=== PATIENT | female | born 1945 | race Caucasian/White ===

== ENCOUNTER → 2017-11-19 | Outpatient (CLI) | payer MEDICARE, BC ==
[~2017-11-19] MED LIST: DIAZIDE PO; DULO60 PO; ESOM20 PO; GLUCHON PO; MELO7.5 PO; OSTEOFLEX PO; PROM25 PO; TRIHYD253A PO; VITB100 PO; ZESTRIL40 MG PO
[2017-11-19 15:59] LABS: Adenovirus F 40/41 Not Detected (NOT DETECT); Astrovirus Not Detected (NOT DETECT); Campylobacter Sp Not Detected (NOT DETECT); Cryptosporidium Not Detected (NOT DETECT); Cyclospora Cayetanensis Not Detected (NOT DETECT); E. Coli O157 Not Detected (NOT DETECT); Entamoeba Histolytica Not Detected (NOT DETECT); Enteroaggregative E. coli-EAEC Not Detected (NOT DETECT); Enteropathogenic E. coli-EPEC Not Detected (NOT DETECT); Enterotoxigenic E. coli-ETEC Not Detected (NOT DETECT); Giardia Lamblia Not Detected (NOT DETECT); Norovirus GI/GII Not Detected (NOT DETECT); Plesiomonas Shigelloides Not Detected (NOT DETECT); Rotavirus A Not Detected (NOT DETECT); Salmonella Sp Not Detected (NOT DETECT); Sapovirus Not Detected (NOT DETECT); Shigella/Enteroin E. coli-EIEC Not Detected (NOT DETECT); Vibrio Cholerae Not Detected (NOT DETECT); Vibrio Sp Not Detected (NOT DETECT); Yersinia Enterocolitica Not Detected (NOT DETECT)
[2017-11-19 19:28] LABS: Shiga Toxin-prod E. coli-STEC Detected (NOT DETECT)
== END ==
LOC: LAB SHORT 13:55 → LAB 13:55 → LAB FUT 11-19 12:30 → EDSTATUS 11-19 12:30
PROVIDERS: Internal Medicine Hematology & Oncology
DX: R19.7 Diarrhea, unspecified (principal)
CPT/HCPCS: 87507

== ENCOUNTER → 2018-04-09 | Outpatient (CLI) | payer MEDICARE, BC ==
[2018-04-09 15:23] LABS: Percent Saturation 33.3 % (15.0-50.0)
== END | disposition home or self-care (01) ==
LOC: LAB SHORT 14:13 → LAB 14:13
PROVIDERS: Internal Medicine Hematology & Oncology
DX: D50.9 Iron deficiency anemia, unspecified (principal)
CPT/HCPCS: 83540; 83550

== ENCOUNTER → 2021-07-14 | Outpatient (CLI) | payer MEDICARE, BC ==
[~2021-07-14] MED LIST changes: +8 HOUR ACETAMI650 MG PO; +Lovastatin20 MG PO; +VENL75ER PO; +VITAMIN D-32000 UNIT PO; +ZESTRIL40 M1 PO
[2021-07-16 15:07] LABS: FATS, NEUTRAL Normal (.)
[2021-07-19 06:09] LABS: FATS, TOTAL Normal (.)
== END | disposition home or self-care (01) ==
LOC: LAB SHORT 09:45
PROVIDERS: Family Medicine
DX: R14.0 Abdominal distension (gaseous) (principal); R14.3 Flatulence; R63.4 Abnormal weight loss
CPT/HCPCS: 82653; 82705

== ENCOUNTER 2021-12-21 09:11 | Day surgery (SDC) | payer MEDICARE, BC ==
[~2021-12-21] VITALS: Ht 157.5 cm; Wt 57.0 kg
[~2021-12-21 09:11] MED LIST changes: +ACAR50 PO; +CREON DR 36,001 EACH PO; +FISH OIL-VIT D1 EACH PO; +PROLIA60 MG/1 ML SC; +SERT25 PO
== END 2021-12-21 10:45 | disposition home or self-care (01) ==
LOC: ORSCSDS 09:11
PROVIDERS: Ophthalmology
PROC: 08RJ3JZ Replacement of Right Lens with Synthetic Substitute, Percutaneous Approach (ICD-10-PCS; principal; 2021-12-21 10:30)
DX: H25.11 Age-related nuclear cataract, right eye (principal); N18.9 Chronic kidney disease, unspecified; I12.9 Hypertensive chronic kidney disease with stage 1 through stage 4 chronic kidney disease, or unspecified chronic kidney disease; B19.10 Unspecified viral hepatitis B without hepatic coma; D50.9 Iron deficiency anemia, unspecified; E78.5 Hyperlipidemia, unspecified; R73.03 Prediabetes; Z87.891 Personal history of nicotine dependence; Z79.899 Other long term (current) drug therapy
CPT/HCPCS: 82947; J2001; J2250; J3010; J3301; J7040; V2632

== ENCOUNTER 2021-12-28 07:51 | Day surgery (SDC) | payer MEDICARE, BC ==
[~2021-12-28] VITALS: Ht 157.5 cm; Wt 56.5 kg
[2021-12-28] MEDS ORDERED: Mobic15 MG (08:06)
== END 2021-12-28 09:37 | disposition home or self-care (01) ==
LOC: ORSCSDS 07:51
PROVIDERS: Ophthalmology
PROC: 08RK3JZ Replacement of Left Lens with Synthetic Substitute, Percutaneous Approach (ICD-10-PCS; principal; 2021-12-28 09:00)
DX: H25.12 Age-related nuclear cataract, left eye (principal); I10 Essential (primary) hypertension; E03.9 Hypothyroidism, unspecified; I12.9 Hypertensive chronic kidney disease with stage 1 through stage 4 chronic kidney disease, or unspecified chronic kidney disease; N18.9 Chronic kidney disease, unspecified; Z79.899 Other long term (current) drug therapy
CPT/HCPCS: 82947; J2001; J2250; J3010; J3301; J7040; V2632

== ENCOUNTER 2022-01-02 07:15 | Day surgery (SDC) | payer MEDICARE, BC ==
[~2022-01-02] VITALS: Ht 157.5 cm; Wt 56.8 kg
[~2022-01-02 07:15] MED LIST changes: +Mobic15 MG
--- NOTE | 2022-01-02 08:45 | NUR ---
01/02/22 0845 JESSE SALINAS 0.3MG OF EPI(1MG/1ML) ADDED TO 30MLS OF LIDOCAINE 1% TO CREATE A LOCAL SOLUTION OF LIDOCAINE 1% WITH EPI 1:100,000. 10MLS OF LOCAL SOLUTION INJECTED INTO RIGHT HAND AT BEGINNING OF CASE BY SEGUNDO LYON.
== END 2022-01-02 09:35 | disposition home or self-care (01) ==
LOC: ORSCSDS 07:15
PROVIDERS: Orthopaedic Surgery
PROC: 01N50ZZ Release Median Nerve, Open Approach (ICD-10-PCS; principal; 2022-01-02 08:30)
DX: G56.01 Carpal tunnel syndrome, right upper limb (principal); D64.9 Anemia, unspecified; K21.9 Gastro-esophageal reflux disease without esophagitis; F41.9 Anxiety disorder, unspecified; F32.A Depression, unspecified; N18.9 Chronic kidney disease, unspecified; I10 Essential (primary) hypertension; R73.03 Prediabetes; Z98.84 Bariatric surgery status; Z79.899 Other long term (current) drug therapy
CPT/HCPCS: 82947; J0171; J2250; J2704; J3010; J7120

== ENCOUNTER 2022-07-17 00:26 | Day surgery (SDC) | payer MEDICARE, BC ==
[~2022-07-17 00:26] MED LIST changes: -Mobic15 MG; +Mobic15 MG PO
[2022-07-17] MEDS ORDERED: CREON DR 36,001 EACH PO (13:33)
== END 2022-07-17 15:10 | disposition home or self-care (01) ==
LOC: ATC 00:26
DX: G61.82 Multifocal motor neuropathy (principal); I12.9 Hypertensive chronic kidney disease with stage 1 through stage 4 chronic kidney disease, or unspecified chronic kidney disease; N18.9 Chronic kidney disease, unspecified; Z79.899 Other long term (current) drug therapy
CPT/HCPCS: 96365; 96366; 96375; A9270; J1100; J1569

== ENCOUNTER 2022-07-18 02:59 | Day surgery (SDC) | payer MEDICARE, BC | END 2022-07-18 15:41 | disposition home or self-care (01) | LOC: ATC 02:59 | DX: G61.82 Multifocal motor neuropathy (principal); M62.59 Muscle wasting and atrophy, not elsewhere classified, multiple sites; G60.8 Other hereditary and idiopathic neuropathies; G72.9 Myopathy, unspecified; F32.A Depression, unspecified; K21.9 Gastro-esophageal reflux disease without esophagitis; I12.9 Hypertensive chronic kidney disease with stage 1 through stage 4 chronic kidney disease, or unspecified chronic kidney disease; N18.9 Chronic kidney disease, unspecified; Z87.891 Personal history of nicotine dependence; Z79.899 Other long term (current) drug therapy | CPT/HCPCS: 96365; A9270; J1100; J1569 ==

== ENCOUNTER 2022-07-19 00:43 | Day surgery (SDC) | payer MEDICARE, BC | END 2022-07-19 15:56 | disposition home or self-care (01) | LOC: ATC 00:43 | DX: G61.82 Multifocal motor neuropathy (principal) | CPT/HCPCS: 96365; 96366; A9270; J1568 ==

== ENCOUNTER 2022-07-20 02:17 | Day surgery (SDC) | payer MEDICARE, BC | END 2022-07-20 15:30 | disposition home or self-care (01) | LOC: ATC 02:17 | DX: G61.82 Multifocal motor neuropathy (principal); G60.8 Other hereditary and idiopathic neuropathies; G72.9 Myopathy, unspecified | CPT/HCPCS: A9270; J1568 ==

== ENCOUNTER 2022-08-16 02:01 | Day surgery (SDC) | payer MEDICARE, BC | END 2022-08-16 16:10 | disposition home or self-care (01) | LOC: ATC 02:01 | DX: G61.82 Multifocal motor neuropathy (principal); M62.59 Muscle wasting and atrophy, not elsewhere classified, multiple sites; F32.A Depression, unspecified; K21.9 Gastro-esophageal reflux disease without esophagitis; I12.9 Hypertensive chronic kidney disease with stage 1 through stage 4 chronic kidney disease, or unspecified chronic kidney disease; N18.9 Chronic kidney disease, unspecified; Z79.891 Long term (current) use of opiate analgesic; Z79.899 Other long term (current) drug therapy; Z87.891 Personal history of nicotine dependence | CPT/HCPCS: 96365; 96366; A9270; J1568 ==

== ENCOUNTER 2022-08-17 00:23 | Day surgery (SDC) | payer MEDICARE, BC | END 2022-08-17 16:30 | disposition home or self-care (01) | LOC: ATC 00:23 | DX: G61.82 Multifocal motor neuropathy (principal) | CPT/HCPCS: A9270; J1569 ==

== ENCOUNTER 2022-09-13 00:45 | Day surgery (SDC) | payer MEDICARE, BC ==
[~2022-09-13] VITALS: Wt 56.5 kg
== END 2022-09-13 11:42 | disposition home or self-care (01) ==
LOC: ATC 00:45
DX: G61.82 Multifocal motor neuropathy (principal)
CPT/HCPCS: 96365; 96366; A9270; J1569

== ENCOUNTER 2022-09-28 11:36 | Emergency (ER) | payer MEDICARE, BC ==
[~2022-09-28] VITALS: Ht 157.5 cm; Wt 56.7 kg
[2022-09-28 13:13] LABS: BASOPHILS ABSOLUTE AUTO 0.07 K/mm3 (0.00-0.23); BASOPHILS PERCENT AUTO 2 % (0-2); EOSINOPHILS ABSOLUTE AUTO 0.29 K/mm3 (0.00-0.68); EOSINOPHILS PERCENT AUTO 7 % (0-6); Hematocrit 38.6 % (33.0-51.0); Hemoglobin 12.7 g/dL (11.5-16.0); IMMATURE GRAN PERCENT AUTO 0 % (0-1); LYMPHOCYTES ABSOLUTE AUTO 1.08 K/mm3 (0.84-5.20); LYMPHOCYTES PERCENT AUTO 25 % (21-46); MONOCYTES ABSOLUTE AUTO 0.35 K/mm3 (0.16-1.47); MONOCYTES PERCENT AUTO 8 % (4-13); Mean Corpuscular HGB 29.1 pg (26.0-34.0); Mean Corpuscular HGB Conc 32.9 g/dL (31.5-36.5); Mean Corpuscular Volume 88 fL (80-100); NEUTROPHILS ABSOLUTE AUTO 2.49 K/mm3 (1.96-9.15); NEUTROPHILS PERCENT AUTO 58 % (41-73); Platelet Count 330 K/mm3 (150-400); RDW Coefficient Variation 13.7 % (11.7-14.2); RDW Standard Deviation 44.4 fL (35.1-46.3); Red Blood Cell Count 4.37 M/mm3 (3.80-5.20); White Blood Cell Count 4.28 K/mm3 (4.00-11.30)
[2022-09-28 13:40] LABS: Albumin, Blood 3.9 g/dL (3.4-5.0); Albumin/Globulin Ratio 0.8 (0.8-1.8); Bilirubin, Total 0.3 mg/dL (0.1-1.0); Bun/Creatinine Ratio 32.8 (12.0-20.0); Calcium, Blood 9.7 mg/dL (8.5-10.1); Creatinine, Blood 0.76 mg/dL (0.40-1.00); Globulin, Blood 4.9 g/dL (2.2-4.0); Magnesium, Blood 2.1 mg/dL (1.6-2.4); Potassium, Blood 3.8 mmol/L (3.5-5.5); Total Protein, Blood 8.8 g/dL (6.4-8.2)
== END 2022-09-28 16:01 | disposition home or self-care (01) ==
LOC: ER 11:36
PROVIDERS: Physician Assistant
DX: Z04.89 Encounter for examination and observation for other specified reasons (principal); I10 Essential (primary) hypertension; Z79.899 Other long term (current) drug therapy; Z88.1 Allergy status to other antibiotic agents; Z91.048 Other nonmedicinal substance allergy status
CPT/HCPCS: 36415; 80053; 83735; 85025

== ENCOUNTER 2022-10-18 00:59 | Day surgery (SDC) | payer MEDICARE, BC ==
[~2022-10-18] VITALS: Wt 56.8 kg
[2022-10-18 09:10] VITALS: BP 152/88
[2022-10-18] MEDS ORDERED: ABILIFY MYCITE2 M2 PO (09:12)
[2022-10-18 09:54] VITALS: BP 133/81
[2022-10-18 10:06] VITALS: BP 146/76
[2022-10-18 10:38] VITALS: BP 143/76
== END 2022-10-18 11:18 | disposition home or self-care (01) ==
LOC: ATC 00:59
DX: G61.82 Multifocal motor neuropathy (principal); K21.9 Gastro-esophageal reflux disease without esophagitis; Z86.010 Personal history of colon polyps
CPT/HCPCS: 96365; 96366; A9270; J1569

== ENCOUNTER 2022-10-19 01:11 | Day surgery (SDC) | payer MEDICARE, BC ==
[~2022-10-19 01:11] MED LIST changes: +ABILIFY MYCITE2 M2 PO
[2022-10-19 09:19] VITALS: BP 146/78
[2022-10-19 09:57] VITALS: BP 143/86
[2022-10-19 10:14] VITALS: BP 135/88
[2022-10-19 10:28] VITALS: BP 141/87
[2022-10-19 10:46] VITALS: BP 157/86
== END 2022-10-19 11:27 | disposition home or self-care (01) ==
LOC: ATC 01:11
DX: G61.82 Multifocal motor neuropathy (principal); Z85.3 Personal history of malignant neoplasm of breast; N18.9 Chronic kidney disease, unspecified; K21.9 Gastro-esophageal reflux disease without esophagitis
CPT/HCPCS: 96365; 96366; J1569

== ENCOUNTER 2022-11-15 01:27 | Day surgery (SDC) | payer MEDICARE, BC ==
[2022-11-15 09:05] VITALS: BP 138/84
[2022-11-15 09:52] VITALS: BP 129/87
[2022-11-15 10:08] VITALS: BP 118/67
[2022-11-15 10:23] VITALS: BP 134/76
[2022-11-15 10:40] VITALS: BP 128/76
== END 2022-11-15 11:15 | disposition home or self-care (01) ==
LOC: ATC 01:27
DX: G61.82 Multifocal motor neuropathy (principal); I12.9 Hypertensive chronic kidney disease with stage 1 through stage 4 chronic kidney disease, or unspecified chronic kidney disease; N18.9 Chronic kidney disease, unspecified; K21.9 Gastro-esophageal reflux disease without esophagitis; Z87.891 Personal history of nicotine dependence; Z79.899 Other long term (current) drug therapy
CPT/HCPCS: 96365; 96366; J1569

== ENCOUNTER 2024-07-07 20:45 | Emergency (ER) | payer MEDICARE, BC ==
[~2024-07-07] VITALS: Ht 157.5 cm; Wt 59.0 kg
[2024-07-07 23:46] VITALS: BP 179/99
[2024-07-07] MEDS ORDERED: HYDROcodone 5-APAP 325 TAB PO ONE (23:50)
[2024-07-07] MEDS ORDERED: Trimethoprim/Sulfamethoxazole DS Tab PO ONE (23:55)
[2024-07-07] MEDS ORDERED: Cephalexin Monohydrate 500 MG Cap PO ONE (23:55)
[2024-07-08] MEDS ORDERED: RX Prepack 6 Tabs Oxycodone 5mg UD ONE (00:20)
[2024-07-08] MEDS ORDERED: SULTRIDS PO (00:21)
[2024-07-08] MEDS ORDERED: HYDR1TAB94 PO (00:21)
[2024-07-08] MEDS ORDERED: CEPH500 PO (00:21)
== END 2024-07-08 00:41 | disposition home or self-care (01) ==
LOC: ER 20:45
DX: L03.012 Cellulitis of left finger (principal); I10 Essential (primary) hypertension; Z79.899 Other long term (current) drug therapy; Z88.1 Allergy status to other antibiotic agents; Z88.8 Allergy status to other drugs, medicaments and biological substances
CPT/HCPCS: 10060; 99283-25; A9270

== ENCOUNTER → 2024-08-22 | Outpatient (CLI) | payer MEDICARE, BC ==
[~2024-08-22] MED LIST changes: +AMOCLA875 PO; +CEPH500 PO; +HYDR1TAB94 PO; +SULTRIDS PO
[2024-08-22 14:26] LABS: BASOPHILS ABSOLUTE AUTO 0.07 K/mm3 (0.00-0.23); BASOPHILS PERCENT AUTO 1 % (0-2); EOSINOPHILS ABSOLUTE AUTO 0.32 K/mm3 (0.00-0.68); EOSINOPHILS PERCENT AUTO 4 % (0-6); Hematocrit 38.8 % (33.0-51.0); Hemoglobin 12.9 g/dL (11.5-16.0); IMMATURE GRAN ABSOLUTE AUTO 0.02 K/mm3 (0.00-0.10); IMMATURE GRAN PERCENT AUTO 0 % (0-1); LYMPHOCYTES ABSOLUTE AUTO 1.22 K/mm3 (0.84-5.20); LYMPHOCYTES PERCENT AUTO 14 % (21-46); MONOCYTES ABSOLUTE AUTO 0.75 K/mm3 (0.16-1.47); MONOCYTES PERCENT AUTO 9 % (4-13); Mean Corpuscular HGB 29.5 pg (26.0-34.0); Mean Corpuscular HGB Conc 33.2 g/dL (31.5-36.5); Mean Corpuscular Volume 89 fL (80-100); NEUTROPHILS ABSOLUTE AUTO 6.43 K/mm3 (1.96-9.15); NEUTROPHILS PERCENT AUTO 73 % (41-73); Platelet Count 481 K/mm3 (150-400); RDW Coefficient Variation 14.6 % (11.7-14.2); RDW Standard Deviation 46.8 fL (35.1-46.3); Red Blood Cell Count 4.38 M/mm3 (3.80-5.20); White Blood Cell Count 8.81 K/mm3 (4.00-11.30)
[2024-08-24 20:07] LABS: RHEUMATOID FACTOR <10 IU/mL (0-14)
[2024-08-24 23:16] LABS: ANTI-NUCLEAR AB ANA,IGG ELISA None Detected (None Detected)
== END ==
LOC: LAB SHORT 14:16 → LAB 14:16
PROVIDERS: Physician Assistant
DX: L03.119 Cellulitis of unspecified part of limb (principal)
CPT/HCPCS: 84550; 85025; 85651; 86038; 86431; 87070; 87075; 87077; 87147; 87186; 87205

== ENCOUNTER 2024-08-27 02:34 | Day surgery (SDC) | payer MEDICARE, BC ==
[~2024-08-27 02:34] MED LIST changes: -AMOCLA875 PO
[2024-08-27] MEDS ORDERED: Lidocaine HCl 4% Cream 5 GM ONE (12:19)
[2024-08-28] MEDS ORDERED: AMOCLA875 PO (09:30)
== END 2024-08-27 23:00 | disposition home or self-care (01) ==
LOC: WOUND 02:34
DX: S61.200A Unspecified open wound of right index finger without damage to nail, initial encounter (principal); A49.02 Methicillin resistant Staphylococcus aureus infection, unspecified site; I10 Essential (primary) hypertension; Z88.1 Allergy status to other antibiotic agents
CPT/HCPCS: A9270; G0463

== ENCOUNTER 2024-08-28 08:57 | Day surgery (SDC) | payer MEDICARE, BC ==
[~2024-08-28] VITALS: Ht 157.5 cm; Wt 54.7 kg
[2024-08-28] MEDS ORDERED: AMOCLA875 PO (09:30)
[2024-08-28] MEDS ORDERED: NS 1,000 ML IV ONE (09:48)
--- NOTE | 2024-08-28 09:49 | NUR ---
08/28/24 0949 VINAY OLSON PT RESTING ON GURNEY, RAILS UP, CALL LIGHT IN REACH
[2024-08-28] MEDS ORDERED: Vancomycin HCL 1,000 MG in NS 250 ML IV SCH (10:50)
[2024-08-28] MEDS ORDERED: propofoL 20 ML IV ONE (10:50)
[2024-08-28] MEDS ORDERED: FentaNYL Citrate 50 MCG/ML 2 ML Injection ONE (10:54)
[2024-08-28] MEDS ORDERED: Dexamethasone Sod Phos 10 MG/ML 1ML VIAL ONE (11:14)
[2024-08-28] MEDS ORDERED: Ondansetron HCl 2 MG / ML 2ML Vial ONE (11:14)
[2024-08-28] MEDS ORDERED: SuccINYLCHOLINE Chloride 100 MG/5 ML 5MLSYR ONE (11:14)
[2024-08-28] MEDS ORDERED: Lidocaine HCl 1% 20 ML MDV INJ ONE ×2 (11:31)
--- NOTE | 2024-08-28 12:04 | NUR ---
08/28/24 1204 Cherelle Tobias LEFT HAND COOL, CAP REFILL 3 SECONDS
[2024-08-28] MEDS ORDERED: HYDROcodone 5-APAP 325 TAB ONE (12:43)
[2024-08-28 12:45] VITALS: BP 141/85
== END 2024-08-28 13:01 | disposition home or self-care (01) ==
LOC: ORSCSDS 08:57
PROVIDERS: Orthopaedic Surgery
PROC: 0X6W0Z0 Detachment at Left Little Finger, Complete, Open Approach (ICD-10-PCS; principal; 2024-08-28 10:30)
DX: M86.142 Other acute osteomyelitis, left hand (principal); L03.012 Cellulitis of left finger; I10 Essential (primary) hypertension; K21.9 Gastro-esophageal reflux disease without esophagitis; E03.9 Hypothyroidism, unspecified; Z79.899 Other long term (current) drug therapy
CPT/HCPCS: 82947; 88305; 88311; A9270; J0330; J1100; J2405; J2704; J3010; J3370; J7050

== ENCOUNTER 2024-09-03 00:42 | Day surgery (SDC) | payer MEDICARE, BC ==
[~2024-09-03 00:42] MED LIST changes: +AMOCLA875 PO
== END 2024-09-03 23:00 | disposition home or self-care (01) ==
LOC: WOUND 00:42
DX: S61.200D Unspecified open wound of right index finger without damage to nail, subsequent encounter (principal); L08.9 Local infection of the skin and subcutaneous tissue, unspecified; X58.XXXD Exposure to other specified factors, subsequent encounter; A49.02 Methicillin resistant Staphylococcus aureus infection, unspecified site
CPT/HCPCS: G0463

== ENCOUNTER 2024-09-09 00:55 | Day surgery (SDC) | payer MEDICARE, BC | END 2024-09-09 23:00 | disposition home or self-care (01) | LOC: WOUND 00:55 | DX: S61.200D Unspecified open wound of right index finger without damage to nail, subsequent encounter (principal); X58.XXXD Exposure to other specified factors, subsequent encounter | CPT/HCPCS: G0463 ==

== ENCOUNTER → 2024-09-27 | Outpatient (CLI) | payer MEDICARE, BC ==
[2024-09-27 09:46] LABS: BASOPHILS ABSOLUTE AUTO 0.05 K/mm3 (0.00-0.23); BASOPHILS PERCENT AUTO 1 % (0-2); EOSINOPHILS ABSOLUTE AUTO 0.43 K/mm3 (0.00-0.68); EOSINOPHILS PERCENT AUTO 10 % (0-6); Hematocrit 35.7 % (33.0-51.0); Hemoglobin 11.7 g/dL (11.5-16.0); IMMATURE GRAN ABSOLUTE AUTO 0.02 K/mm3 (0.00-0.10); IMMATURE GRAN PERCENT AUTO 1 % (0-1); LYMPHOCYTES ABSOLUTE AUTO 1.26 K/mm3 (0.84-5.20); LYMPHOCYTES PERCENT AUTO 29 % (21-46); MONOCYTES PERCENT AUTO 12 % (4-13); Mean Corpuscular HGB 29.5 pg (26.0-34.0); Mean Corpuscular HGB Conc 32.8 g/dL (31.5-36.5); Mean Corpuscular Volume 90 fL (80-100); Mean Platelet Volume 8.8 fL (9.1-12.4); NEUTROPHILS ABSOLUTE AUTO 2.06 K/mm3 (1.96-9.15); NEUTROPHILS PERCENT AUTO 48 % (41-73); Platelet Count 433 K/mm3 (150-400); RDW Coefficient Variation 15.3 % (11.7-14.2); RDW Standard Deviation 51.2 fL (35.1-46.3); Red Blood Cell Count 3.97 M/mm3 (3.80-5.20); White Blood Cell Count 4.32 K/mm3 (4.00-11.30)
[2024-09-27 09:57] LABS: Albumin, Blood 4.4 g/dL (3.4-5.0); Albumin/Globulin Ratio 1.3 (0.8-1.8); Bilirubin, Total 0.5 mg/dL (0.1-1.0); Bun/Creatinine Ratio 17.9 (12.0-20.0); Calcium, Blood 9.7 mg/dL (8.5-10.1); Creatinine, Blood 1.4 mg/dL (0.40-1.00); Globulin, Blood 3.5 g/dL (2.2-4.0); Magnesium, Blood 1.9 mg/dL (1.6-2.4); Potassium, Blood 4.2 mmol/L (3.5-5.5); Total Protein, Blood 7.9 g/dL (6.4-8.2)
== END ==
LOC: LAB SHORT 09:41 → LAB 09:41
PROVIDERS: Physician Assistant
DX: R53.83 Other fatigue (principal)
CPT/HCPCS: 80053; 83735; 85025